=== PATIENT | male | born 1985 | race Caucasian/White ===

== ENCOUNTER 2016-09-15 10:20 | Emergency (ER) | payer SELFPAY ==
[2016-09-15] MEDS ORDERED: Lidocaine 2% 20 ML MDV INJECT ONE (10:30)
[2016-09-15 10:39] VITALS: BP 122/72
[2016-09-15] MEDS ORDERED: Diphtheria,Pertussis(Acell),Tetanus Vaccine 0.5 ML SDV IM ONE (10:50)
--- NOTE | 2016-09-15 10:57 | EDM.PDOC ---
ED HPI Trauma - General Stated Complaint: LEFT ARM Time Seen by Provider: 09/15/16 10:25 Source: Reports: Patient History Limitations: Reports: No limitations - History of Present Illness INITIAL COMMENTS - FREE TEXT/NARRATIVE: 30 years old w m in prev. healthy condition, injured himself at his left arm with a supervisor transferring and boxing knife at home at 6 am. No active bleed at the time. No loss of function,Nl CAP refill. No other medical issues, no constitutional symptoms. Symptom Onset Date: 09/15/16 Symptom Onset Time: 06:00 Occurred When: just prior to arrival Occurred Where: home Method of Injury: other (boxer knife cut) Severity: mild Pain/Injury Location: Reports: upper extremity, left Consciousness: Reports: no loss of consciousness Allergies/ADRs: Allergies No Known Allergies Allergy (Verified 09/15/16 10:42) Home Medications: Ambulatory Orders Cephalexin [Keflex] 500 mg PO Q6HR #40 cap 09/15/16 Review of Systems - Review of Systems Review Of Systems: See Below Constitutional: Reports: no symptoms Eyes: Reports: no symptoms Ears: Reports: no symptoms Nose: Reports: no symptoms Mouth/Throat: Reports: no symptoms Respiratory: Reports: No Symptoms Cardiovascular: Reports: no symptoms GI/Abdominal: Reports: No symptoms Genitourinary: Reports: no symptoms Musculoskeletal: Reports: no symptoms Skin: Reports: wound (left prox forearm ) Neurological: Reports: No Symptoms Psychiatric: Reports: no symptoms Trauma Exam - Physical Exam Exam: See Below Exam Limited By: No limitations General Appearance: Reports: alert, WD/WN, no apparent distress Head: Reports: atraumatic, normocephalic Eyes: bilateral eye: EOMI, normal inspection, PERRL Ears: Reports: normal external exam, normal canal, hearing grossly normal, normal TMs Nose: Reports: normal inspection, normal mucousa, no blood Throat/Mouth: Reports: Normal inspection, Normal lips, Normal teeth, Normal gums , Normal oropharynx, Normal voice, No airway compromise Neck: Reports: non-tender, full range of motion, normal alignment, normal inspection Respiratory Exam: Reports: no respiratory distress, lungs clear, normal breath sounds Cardiovascular: Reports: normal peripheral pulses, regular rate, rhythm, no edema, no gallop, no JVD, no murmur, no rub GI/Abdominal: Reports: normal bowel sounds, soft, non tender, no organomegaly, no distention, no abnormal bruit, no mass (Male) Exam: Deferred Rectal (Males) Exam: Deferred Back: Reports: full range of motion, normal inspection, non-tender Extremities: Reports: normal range of motion, non-tender, no pedal edema, pelvis stable Neurologic: Reports: host coordinator II-XII nml as tested, no motor/sensory deficits, alert , normal mood/affect, oriented x 3 Skin: Reports: Normal color, Warm/dry, Other (LAC left prox forearm) - Damaso Coma Score Best Eye Response (Damaso): (4) open spontaneously Best Verbal Response (Chauncey): (5) oriented Best Motor Response (Chauncey): (6) obeys commands Chauncey Total: 15 ED TRAUMA EXTREMITY PROCEDURES - Laceration/Wound Repair Left Lateral Proximal Arm Lac/wound length in cm: 1.5 Distal NVT: neuro & vascular intact, no tendon injury Anesthetic type: local Local anesthesia - Lidocaine (Xylocaine): 2% plain Local anesthetic volume: 2cc Skin prep: providone-iodine (betadine) Exploration/Debridement/Repair: wound explored, in a bloodless field, explored to base Closed with: sutures Suture size: 4-0 # of sutures: 3 Suture type: other (ethilon) Tetanus status addressed: Yes Complications: No Course - Vital Signs Text/Narrative:: 30 years old w m in prev. healthy condition, injured himself at his left arm with a supervisor transferring and boxing knife at home at 6 am. No active bleed at the time. No loss of function,Nl CAP refill. No other medical issues, no constitutional symptoms. PE: Left prox arm LAC, repaired in the ed Tx: TD, wound repair Impression: Left prox arm LAC, repaired in the ed Plan: D/C with instructions. Last Recorded V/S: Last Vital Signs Temp 36.4 C 09/15/16 10:25 Pulse 72 09/15/16 10:25 Resp 18 09/15/16 10:25 BP 122/72 09/15/16 10:25 Pulse Ox - Orders/Labs/Meds Meds: Medications Discontinued Medications Generic Name Dose Route Start Last Admin Trade Name Freq PRN Reason Stop Dose Admin Diphtheria/Tetanus/Acell Pertussis 0.5 ml 09/15/16 10:50 09/15/16 11:04 Adacel IM 09/15/16 10:51 0.5 ml .ONCE ONE Administration Lidocaine HCl 2 ml 09/15/16 10:30 Xylocaine 2% INJECT 09/15/16 10:31 .STK-MED ONE Departure - Departure Time of Disposition: 10:51 Disposition: Home, Self-Care 01 Condition: good Clinical Impression: Laceration Prescriptions: Cephalexin [Keflex] 500 mg PO Q6HR #40 cap Instructions: Laceration Care, Adult Referrals: PCP,None [Primary Care Provider] - Forms: ED Department Discharge Additional Instructions: Please apply neosporine ointment twice daily for 5 days, wound check in 2 days, suture removal in 10 days. Please come back to the ed if your symptoms get worse acutely.
== END 2016-09-15 11:15 | disposition home or self-care (01) ==
LOC: FB.ED 10:20
DX: S51.812A Laceration without foreign body of left forearm, initial encounter (principal); Z23 Encounter for immunization; W26.8XXA Contact with other sharp object(s), not elsewhere classified, initial encounter; Y92.009 Unspecified place in unspecified non-institutional (private) residence as the place of occurrence of the external cause
CPT/HCPCS: 12001; 12002; 90471; 90715; 99283